=== PATIENT | female | born 1965 | race Caucasian/White ===

== ENCOUNTER 2019-11-02 15:27 | Emergency (ER) | payer MEDICARE, MEDICAID, SELFPAY ==
--- NOTE | ~2019-11-02 | XR_ITS ---
EXAMINATION: XR wrist RT min 3V DATE: 11/02/2019 16:04 INDICATION: Diffuse right wrist pain post fall 4 days prior TECHNIQUE: Posteroanterior, ulnar deviation, oblique, and lateral views of the right wrist were obtai panchito. COMPARISON: 03/24/2015 FINDINGS: Alignment is normal. No fracture. Again seen is severe osteoarthritis at the first carpometacarpal juni int and mild osteoarthritis at the triscaphe joint. IMPRESSION: 1. Severe osteoarthritis at the right first carpal metacarpal joint. No acute osseous abnormality. Reviewed, dictated and finalized at location A. D BANK MANAGER IMPRESSION: 1. Severe osteoarthritis at the right first carpal metacarpal joint. No acute o sseous abnormality.
[2019-11-02 15:51] VITALS: BP 117/67; PULSE 84; RESP 16; TEMP 37.6; O2SAT 98
--- NOTE | 2019-11-02 16:25 | ED.UPPEXIN ---
HPI - Extremity Injury (Upper) General Chief Complaint: Extremity Injury, Upper Stated Complaint: Cough/Congestion/R wrist injury Time Seen by Provider: 11/02/19 16:15 Source: patient and RN notes reviewed Mode of arrival: ambulatory Limitations: no limitations History of Present Illness HPI narrative: Patient presents today complaining of 2-day history of nasal congestion, dry cough, body aches. 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 Denies sore throat or shortness of breath. She does report history of asthma and obstructive sleep apnea. She has been taking Advil Cold and Sinus without relief. She also complains of right wrist pain after falling 4 days ago. Denies any increased numbness and tingling in that arm or hand. No history of neuropathy and carpal tunnel syndrome as well as osteoarthritis. She currently rates the wrist pain 04/17 and has been taking Tylenol without relief. Related Data Home Medications Medication Instructions Recorded Confirmed albuterol sulfate 2 puff INHALATION QID PRN 11/02/19 11/02/19 colestipol 4 g PO BID 11/02/19 11/02/19 doxycycline monohydrate 100 mg PO BID 11/02/19 11/02/19 fluticasone propion-salmeterol 2 puff INHALATION BID 11/02/19 11/02/19 [Advair HFA] furosemide 40 mg BID 11/02/19 11/02/19 gabapentin 600 mg PO TID 11/02/19 11/02/19 levothyroxine 50 mcg DAILY 11/02/19 11/02/19 lisinopril 2.5 mg DAILY 11/02/19 11/02/19 meloxicam 15 mg DAILY 11/02/19 11/02/19 omeprazole 40 mg PO DAILY 11/02/19 11/02/19 oxybutynin chloride 5 mg BID 11/02/19 11/02/19 sertraline 100 mg DAILY 11/02/19 11/02/19 Allergies Allergy/AdvReac Type Severity Reaction Status Date / Time vancomycin Allergy Unknown Itching Verified 11/02/19 16:20 Sulfa (Sulfonamide Allergy Rash Verified 11/02/19 16:20 Antibiotics) Review of Systems Review of Systems: Narrative: CONSTITUTIONAL: Denies chills, or sweats.+ Body aches, fever EYES: Denies visual changes, redness, or discharge. ENT: Denies rhinorrhea, sore throat, or otalgia.+ Congestion CARDIOVASCULAR: Denies chest pain, palpitations, or edema. RESPIRATORY: Denies dyspnea.+ Cough GASTROINTESTINAL: Denies abdominal pain, nausea, vomiting, or diarrhea. GENITOURINARY: Denies dysuria or hematuria. SKIN: Denies rash, itching, or wounds. MUSCULOSKELETAL: Denies back pain,or myalgia.+ Right wrist injury NEUROLOGIC: Denies headache, numbness, tingling, or weakness. PSYCH: Denies depression or anxiety. [facility] Past Medical History Medical History (Updated 11/02/19 @ 16:50 by Julianne Villarreal, [facility], ) Asthma Diabetes Hypertension Hypothyroidism Neuropathy Obstructive sleep apnea Osteoarthritis Social History Social History Gender identity (if verbalized by the patient): Female Comments At time of signature, I have reviewed and agree with nursing past medical, surgical, social and family history unless otherwise noted. Please see nursing chart for further information. There is no relevant family history pertinent to the presenting complaint Exam Narrative: Exam Narrative: GENERAL: Mildly ill-appearing, well-nourished, and in no acute distress. HEAD: Normocephalic, atraumatic. EYES: EOMI. No redness or drainage. Conjunctivae normal. ENT: Mucous membranes pink and moist. Nares clear. No rhinorrhea. TMs normal bilaterally. Throat normal. Uvula midline. NECK: Normal AROM. Supple. No lymphadenopathy. CHEST: No respiratory distress. Clear to auscultation. HEART: Regular rate and rhythm. No murmur appreciated. Normal peripheral pulses. ABDOMEN: Soft, nontender, nondistended, normal active bowel sounds. MUSCULOSKELETAL: No bony tenderness. EXTREMITIES: Mild edema surrounding the right wrist without ecchymosis or erythema. Tenderness to the distal ulna area. No snuffbox tenderness. No tenderness to the hand or fingers. Distal sensation intact. Capillary refill normal. Radial pulse normal. Full AROM of wrist and all fingers.
== END 2019-11-02 16:55 | disposition home or self-care (01) ==
PROVIDERS: Emergency Provider Nurse Practitioner; PCP Family Medicine
DX: S63.501A Unspecified sprain of right wrist, initial encounter (principal); S66.911A Strain of unspecified muscle, fascia and tendon at wrist and hand level, right hand, initial encounter; W19.XXXA Unspecified fall, initial encounter; J10.1 Influenza due to other identified influenza virus with other respiratory manifestations; I10 Essential (primary) hypertension; E03.9 Hypothyroidism, unspecified; E11.40 Type 2 diabetes mellitus with diabetic neuropathy, unspecified; M19.90 Unspecified osteoarthritis, unspecified site; G47.30 Sleep apnea, unspecified; J45.909 Unspecified asthma, uncomplicated
CPT/HCPCS: 73110; 87804; 99213; G0463

== ENCOUNTER 2019-11-11 22:07 | Emergency (ER) | payer MEDICARE, MEDICAID, SELFPAY ==
[2019-11-11 22:10] VITALS: BP 151/81; RESP 22; TEMP 36.8
[2019-11-11 22:19] VITALS: BP 135/75; PULSE 71; RESP 22; TEMP 36.8; O2SAT 97
--- NOTE | 2019-11-11 22:53 | ED.FALL ---
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 Pt has a hx of peripheral neuropathy. Pt lost balance and fell. Pt states that she fell and hit the left side of her face on the ground. She notes that this is the second fall d/t losing her balance in the past two weeks. She notes that she checked her blood glucose and she notes that it was 108. She notes that she does not check her blood glucose regularly. Pt also reports mild nose pain, but denies dizziness, syncope, neck pain, hip pain, abdominal pain, chest pain, and vision changes. MD complaint: fall Onset (ago): hour(s) Fall from: standing Fall witnessed: no Place fall occurred: home Loss of consciousness: none Prolonged down time: no Symptoms prior to fall: none Context: other (lost balance) Location of injury: face (left side) and other (nose) Associated symptoms (after fall): other (mild nose pain) Related Data Home Medications Medication Instructions Recorded Confirmed albuterol sulfate 2 puff INHALATION QID PRN 11/02/19 11/02/19 colestipol 4 g PO BID 11/02/19 11/02/19 doxycycline monohydrate 100 mg PO BID 11/02/19 11/02/19 fluticasone propion-salmeterol 2 puff INHALATION BID 11/02/19 11/02/19 [Advair HFA] furosemide 40 mg BID 11/02/19 11/02/19 gabapentin 600 mg PO TID 11/02/19 11/02/19 levothyroxine 50 mcg DAILY 11/02/19 11/02/19 lisinopril 2.5 mg DAILY 11/02/19 11/02/19 meloxicam 15 mg DAILY 11/02/19 11/02/19 omeprazole 40 mg PO DAILY 11/02/19 11/02/19 oxybutynin chloride 5 mg BID 11/02/19 11/02/19 sertraline 100 mg DAILY 11/02/19 11/02/19 Allergies Allergy/AdvReac Type Severity Reaction Status Date / Time vancomycin Allergy Unknown Itching Verified 11/02/19 16:20 Sulfa (Sulfonamide Allergy Rash Verified 11/02/19 16:20 Antibiotics) Review of Systems Review of Systems: All systems reviewed & are unremarkable except as noted in HPI and below Eyes: Eyes: Denies change in vision ENT: Reports nose pain (mild) Cardiovascular: Cardiovascular: Denies chest pain Gastrointestinal: Gastrointestinal: Denies abdominal pain Musculoskeletal: Musculoskeletal: Denies neck pain and Denies other (hip pain) Neurologic: Denies dizziness and Denies syncope [facility] Past Medical History Medical History (Updated 11/12/19 @ 00:09 by Ivan Cardona MD) Asthma Bronchitis Diabetes Irene catheter in place Hypertension Hypothyroidism Inguinal hernia Neuropathy Obstructive sleep apnea Osteoarthritis Ostomy nurse consultation Sleep apnea Thyroid cancer Surgical History Surgical History (Updated 11/11/19 @ 23:03 by Falguni Galvez) H/O inguinal hernia repair H/O partial thyroidectomy History of hysterectomy History of orthopedic surgery partial amputation to her toe d/t infection x2 Hx of cholecystectomy Hx of gastric bypass Hx of tonsillectomy Social History Social History (Updated 11/11/19 @ 23:02 by Falguni Galvez) Smoking packs per day: 1 Smoking cigarettes per day: 20.0 Years smoked: 34 Smoking pack-years: 34.00 Smoking status: Former smoker Tobacco type: cigarettes Smoking end date: 09/08/05 Gender identity (if verbalized by the patient): Female Exam Const: General: no acute distress and ill appearing chronically Nutritional Appearance: obese HENMT: Mouth: Yes dry mucous membranes Teeth and gingiva: abnormal tooth and associated gingiva Eyes: Conjunctivae: conjunctivae normal Pupils: Equal, round and reactive pupils present EOM: EOMs intact bilaterally Chest: Chest palpation & inspection: normal inspection of the chest Resp: Effort & Inspection: normal respiratory effort Auscultation: clear to auscultation bilaterally Car
--- NOTE | 2019-11-11 23:00 | ECG_ITS ---
Measurements Intervals [place] Rate: 67 P: 64 DC: 184 QRS: 32 QRSD: 102 T: 54 QT: 422 QTc: 446 Interpretive Statements SINUS RHYTHM NORMAL ECG Electronically Signed On 11-12-2019 7:03:21 INSTRUCTIONAL AIDE by Tyrell Douglass D.O.
[2019-11-11 23:24] LABS: Basophils Absolute Auto 0.1 K/mm3 (0.0-0.1); Basophils Percent Auto 1.5 % (0.2-1.2); Eosinophils Absolute Auto 0.2 K/mm3 (0-0.3); Immature Granulocyte Absolute 0.01 K/mm3 (0.00-0.031); Immature Granulocyte Percent A 0.2 % (0-0.5); Lymphocytes Absolute Auto 1.55 K/mm3 (0.9-3.2); Lymphocytes Percent Auto 29.6 % (18.3-44.2); Mean Corpuscular HGB Conc 31.4 g/dl (32-36); Mean Corpuscular Hemoglobin 28.3 pg (26-34); Mean Platelet Volume 9.5 fl (7.4-10.4); Monocytes Absolute Auto 0.5 K/mm3 (0.1-0.6); Monocytes Percent Auto 9.4 % (2.6-8.5); Neutrophils Absolute Auto 2.9 K/mm3 (1.3-6.7); Neutrophils Percent Auto 55.3 % (45.5-73.1); Platelet Count Result 266 k/mm3 (150-375); Red Blood Count 3.89 M/mm3 (4.2-5.4); Red Cell Distribution Width 15.2 % (11.5-14.5); White Blood Count 5.2 K/mm3 (4.5-10.0)
[2019-11-11 23:26] LABS: Potassium 3.8 mmol/L (3.4-5.0)
[2019-11-11 23:34] LABS: Blood Urea Nitrogen 19 mg/dL (7-17); Calcium 8.4 mg/dL (8.4-10.2); Carbon Dioxide 23 mmol/L (22-30); Chloride 112 mmol/L (98-107); Estimated CRCL calculation 99 ml/min; Estimated Glomerular Filt Rate > 60; Glucose 140 mg/dL (65-105); Sodium 141 mmol/L (137-145)
[2019-11-12 00:04] VITALS: BP 139/77; PULSE 70
[2019-11-12 00:05] VITALS: BP 158/98; BP 161/101; PULSE 76; PULSE 77
[2019-11-12] MEDS: ACETAMINOPHEN 500 MG TABLET 1000 MG PO (00:25)
== END 2019-11-12 00:45 | disposition home or self-care (01) ==
PROVIDERS: Emergency Provider Emergency Medicine
DX: S09.90XA Unspecified injury of head, initial encounter (principal); E11.42 Type 2 diabetes mellitus with diabetic polyneuropathy; J45.909 Unspecified asthma, uncomplicated; I10 Essential (primary) hypertension; G47.33 Obstructive sleep apnea (adult) (pediatric); Z85.850 Personal history of malignant neoplasm of thyroid; Z98.84 Bariatric surgery status; E89.0 Postprocedural hypothyroidism; Z87.891 Personal history of nicotine dependence; W18.49XA Other slipping, tripping and stumbling without falling, initial encounter
CPT/HCPCS: 36415; 80048; 85025; 93005; 99284; A9270

== ENCOUNTER 2021-09-03 20:14 | Emergency (ER) | payer MEDICARE, MEDICAID, SELFPAY ==
[2021-09-03 20:07] VITALS: BP 120/48; PULSE 81; RESP 20; O2SAT 98
--- NOTE | 2021-09-03 20:29 | PC.NURSE ---
Mary left phone number to be called upon called to ED room. [phone].
--- NOTE | 2021-09-04 01:00 | PC.NURSE ---
Pt moved from wc to ED wr seat without assist. speaking with other patients awaiting bed assignment in wr.
--- NOTE | 2021-09-04 03:20 | PC.NURSE ---
Pt to ED restroom in wc without assist. Back in wr. Still wearing C-collar.
--- NOTE | 2021-09-04 03:29 | PC.NURSE ---
Pt ambulated out of ed with slow, unassisted gait. Stated she was leaving while slowly walking outside.
== END 2021-09-04 03:50 | disposition left against medical advice (07) ==
LOC: ANHED 09-04 03:48
PROVIDERS: PCP Family Medicine
DX: Z53.21 Procedure and treatment not carried out due to patient leaving prior to being seen by health care provider (principal)
CPT/HCPCS: 99199

== ENCOUNTER 2024-02-05 14:25 | Emergency (ER) | payer MEDICARE, MEDICAID, SELFPAY ==
--- NOTE | 2024-02-05 14:29 | ED.DENTAL ---
HPI - Dental/Oral General Chief complaint: Dental/Oral Stated complaint: right side tooth pain Time Seen by Provider: 02/05/24 14:29 Source: patient Mode of arrival: ambulatory Limitations: no limitations History of Present Illness HPI Narrative: Patient is a 58-year-old female who presents with lower right dental pain. Patient has poor dentition and states most of her teeth have fallen out after getting gastric bypass. Patient has called multiple dentists and take her insurance Related Data Home Medications Medication Instructions Recorded Confirmed albuterol sulfate 90 mcg/actuation 2 puff inhalation QID PRN 11/02/19 02/05/24 aerosol inhaler Shortness Of Breath colestipol 1 gram tablet 4 g PO BID 11/02/19 02/05/24 fluticasone propionate 230 2 puff inhalation BID 11/02/19 02/05/24 mcg-salmeterol 21 mcg/actuation HFA inhaler (Advair HFA) furosemide 40 mg tablet 40 mg BID 11/02/19 02/05/24 gabapentin 600 mg tablet 600 mg PO TID 11/02/19 02/05/24 levothyroxine 50 mcg tablet 50 mcg DAILY 11/02/19 02/05/24 omeprazole 40 mg capsule,delayed 40 mg PO DAILY 11/02/19 02/05/24 release oxybutynin chloride 5 mg tablet 5 mg BID 11/02/19 02/05/24 sertraline 100 mg tablet 100 mg DIRECTED 11/02/19 02/05/24 apixaban 5 mg (74 tabs) tablets in 5 mg DIRECTED 02/05/24 02/05/24 a dose pack (From [facility] DVT-PE Treat 30D Start) cyclobenzaprine 10 mg tablet 10 mg DIRECTED 02/05/24 02/05/24 dulaglutide 3 mg/0.5 mL 3 mg subcut DIRECTED 02/05/24 02/05/24 subcutaneous pen injector ([facility]) loperamide 2 mg capsule 2 mg DIRECTED 02/05/24 02/05/24 Allergies Allergy/AdvReac Type Severity Reaction Status Date / Time Sulfa (Sulfonamide Allergy Intermediate Hives Verified 02/05/24 14:49 Antibiotics) sulfamethoxazole Allergy Intermediate Hives Verified 02/05/24 14:49 [From Bactrim] trimethoprim [From Bactrim] Allergy Intermediate Hives Verified 02/05/24 14:49 doxycycline Allergy Mild Rash Verified 02/05/24 14:49 insulin detemir Allergy Mild Itching Verified 02/05/24 14:49 [From Levemir U-100 Insulin] linagliptin Allergy Mild Rash Verified 02/05/24 14:49 phenol Allergy Mild Itching Verified 02/05/24 14:49 vancomycin Allergy Mild Itching Verified 02/05/24 14:49 Review of Systems Review of Systems: All systems reviewed & are unremarkable except as noted in HPI and below Constitutional: Constitutional: Denies body ache(s), Denies fever(s), Denies headache(s), Denies malaise and Denies weakness Eyes: Eyes: Denies loss of vision ENT: Denies otalgia, Reports facial pain (jaw), Denies headache(s), Denies nasal discharge, Denies sinus pain and Denies sore throat Cardiovascular: Cardiovascular: Denies chest pain, Denies irregular heart rhythm and Denies dyspnea Respiratory: Respiratory: Denies dyspnea Gastrointestinal: Gastrointestinal: Denies abdominal pain, Denies melena, Denies hematochezia, Denies diarrhea, Denies nausea and Denies vomiting Musculoskeletal: Musculoskeletal: Denies back pain, Denies myalgias and Denies arthralgias Integumentary/Breasts: Skin/Breast: Denies pruritus and Denies rash Neurologic: Denies headache(s), Denies loss of vision and Denies weakness Psychiatric: Psychiatric: Reports no additional psychiatric complaints PMFSH Past Medical History Medical History Asthma Bronchitis Diabetes Irene catheter in place Hypertension Hypothyroidism Inguinal hernia Neuropathy Obstructive sleep apnea Osteoarthritis Ostomy nurse consultation Sleep apnea Thyroid cancer Surgical History Surgical History H/O inguinal hernia repair H/O partial thyroidectomy History of hysterectomy History of orthopedic surgery partial amputation to her toe d/t infection x2 Hx of cholecystectomy Hx of gastric bypass Hx of tonsillectomy Social History Social History (Reviewed 02/05/24 @
[2024-02-05 14:38] VITALS: BP 123/52; PULSE 78; RESP 18; TEMP 37.1; O2SAT 96
== END 2024-02-05 15:01 | disposition home or self-care (01) ==
PROVIDERS: Emergency Provider Nurse Practitioner Family; PCP Family Medicine
DX: K04.7 Periapical abscess without sinus (principal); Z87.891 Personal history of nicotine dependence; J45.909 Unspecified asthma, uncomplicated; E11.9 Type 2 diabetes mellitus without complications; I10 Essential (primary) hypertension; E03.9 Hypothyroidism, unspecified; M19.90 Unspecified osteoarthritis, unspecified site; Z85.850 Personal history of malignant neoplasm of thyroid; Z90.89 Acquired absence of other organs; Z98.84 Bariatric surgery status
CPT/HCPCS: 99213; G0463